=== PATIENT | female | born 1960 | race Caucasian/White ===

== ENCOUNTER 2024-06-11 12:42 | Outpatient (CLI) | payer BC, MEDICARE | END 2024-06-11 12:43 | disposition home or self-care (01) | LOC: CSHCP 12:42 | PROVIDERS: ATTEND Internal Medicine | DX: J84.9 Interstitial pulmonary disease, unspecified (principal); J98.4 Other disorders of lung | CPT/HCPCS: 71250; 94010; 94726; 94729; 94760 ==